=== PATIENT | female | born 1960 | race Caucasian/White ===

== ENCOUNTER 2018-04-14 23:02 | Emergency (ER) | payer OTHER, SELFPAY ==
[2018-04-14 23:02] VITALS: BP 143/77; PULSE 72; RESP 18; TEMP 36.6; O2SAT 95
[2018-04-14 23:03] VITALS: BP 143/77; PULSE 66; RESP 17; TEMP 36.6; O2SAT 95; BMI 35.9
--- NOTE | 2018-04-14 23:22 | RAD_ITS ---
STUDY: X-RAY - RIGHT RADIUS AND ULNA REASON FOR EXAM: Female, 58 years old. Pain after fall. TECHNIQUE: 2 view(s) of the forearm. COMPARISON: None. FINDINGS: There is no demonstrated soft tissue swelling. Normal visualized radius. Normal visualized ulna. RAD/Forearm 2 Views IMPRESSION: Normal x-ray examination of the radius and ulna. Electronically Signed: Niels Membreno MD at 0:46 EST , Service support ,
--- NOTE | 2018-04-14 23:22 | RAD_ITS ---
STUDY: X-RAY - RIGHT HUMERUS REASON FOR EXAM: Female, 58 years old. Pain after fall. TECHNIQUE: 3 view(s) of the humerus. COMPARISON: None. FINDINGS: Transverse minimally displaced fracture proximal humeral metaphysis. No dislocation. Study limited by patient positioning and/or technique. Soft tissues normal. RAD/Humerus min 2 Views IMPRESSION: Mildly displaced fracture proximal humeral metaphysis on study limited as above. Consider correlation with CT. Electronically Signed: Niels Membreno MD at 0:50 EST , Service support ,
--- NOTE | 2018-04-14 23:26 | ED.DCSUM_ITS ---
- ER Visit Summary Date of Service: 04/14/18 Chief Complaint: Right upper extremity injury History of Present Illness: The patient is a 58 F xuqvv-qzji-vjescjns brought by EMS after mechanical fall 1 hour prior to arrival. Slipped in the yard falling on to her right upper extremity unclear on what she landed on. Pain in the wrist elbow and upper arm. No head injuries. Given medication by EMS, no current relief. States had a leg fracture a year ago no surgical intervention. Followed by [facility]. Physical Examination: General: Alert and oriented ?3, mild distress HEENT: Normocephalic, atraumatic. Moist mucosa membranes Neck: supple, nontender. Cardiovascular: Regular rate and rhythm, no murmurs Respiratory: Normal breath sounds, symmetric, no distress Abdomen: Soft, nontender, nondistended Extremities: Right upper extremity: No clavicular tenderness slight tenderness at the AC joint. Tender palpation proximal humerus. No elbow tenderness. Tender palpation distal radius. No clear gross deformities. Skin intact. Neurovascular intact. Neuro: no focal neurological deficits. Test Results: Right humerus and forearm: Proximal humerus fracture, no dislocation. Emergency Department Course and Treatment: Patient IV placed by EMS. Additional fentanyl for pain control. X-ray of the humerus and forearm obtain noting a proximal humerus fracture. Patient placed in a sling and swath. Improving symptoms. Due to time night, dispense 2 oxycodones to use overnight. Prescription for pain control along with stool softeners. Oaars report negative. Follow-up with [facility] for which she has seen. Treatment Plan: [] Disposition: Discharge Impression: 1. Closed right proximal humerus fracture 2. Mechanical fall This note was generated with [employer] dictation software. It may contain incorrect words, spelling, and punctuation that were not noted in review of the chart prior to signing ED Disposition - Plan for ED Patient: Disposition: Home or Assisted Living Chief Complaint: Upper Extremity Injury Diagnosis: Fracture, humerus, proximal Instructions: ED Sling and Swathe, ED Fx Shoulder Prescriptions: Oxycodone HCl/Acetaminophen [Percocet 5/325] 1 tablet PO Q6H PRN PRN 3 Days #12 tablet PRN Reason: Pain Docusate Sodium [Colace] 100 mg PO DAILY #20 capsule Referrals: Paul Mitchell MD [Primary Care Provider] - Sven Nettles MD [STAFF PHYSICIAN] - 2 Days Additional Instructions: proximal humerous fracture. keep sling and swath. Follow up with eliseo jose raul.
[2018-04-14] MEDS: fentaNYL 100 MCG/2 ML Ampul 50 MCG IV (23:40)
[2018-04-15] MEDS: oxyCODONE 5 MG Tablet 10 MG PO (00:46)
[2018-04-15 01:21] VITALS: BP 143/72; PULSE 67; RESP 18; O2SAT 97
--- OUTSIDE RECORDS SUMMARY | 2018-06-08 02:15 | XMS RPT_ITS ---
:1960 Author Organization [facility] Care Team Providers Name Role Phone TANK GALICIA MD Attending Unavailable RASHAWN BLACKWELL, DR. LC Patterson Primary Care Unavailable LC MOROCHO Primary Care Unavailable Jordon Titus Attending Unavailable Marlin Bello Attending Unavailable Marlin Bello Referring Unavailable LC MOROCHO Primary Care Unavailable PROBLEMS PROBLEMS DATE TYPE CONDITION / CODE ATTENDING STATUS SOURCE 04/15/2018 Unknown S42.209A - Jordon Titus Active [facility] Unspecified [facility] fracture of upper Hospital end of Repository unspecified humerus, initial encounter for closed fracture / S42.209A(ICD-10) PROCEDURES PROCEDURES No Procedure Records FoundRESULTS RESULTS EXTREMITY UPPER Observed: 04/20/2018 Status: F Source: [place] WITHOUT CONTRA 8:55 AM [facility] REPOSITORY [facility] Imaging Services [address] [place] [address] Extremity Upper without Contra MR#: [id number] Acct: [id number] Name: ISIS AGUIRRE Rep #: [id number] : 1960 F 58 From: Kraig Harrison DO PCP: Lc Morocho MD Status: REG CLI Study: Extremity Upper without Contra Date of Exam: 04/20/18 Exam# [id number] Ordering Dr: Marlin eBllo STUDY: CT RIGHT SHOULDER REASON FOR EXAM: Female, 58 years old. Humeral fracture. RADIATION DOSAGE (If Supplied By Facility): CTDIvol = ( 29.76 ) mGy, DLP = ( 626.62 ) mGycm TECHNIQUE: The patient was scanned in a multi detector CT scanner. High resolution transaxial imaging was performed without the administration of intravenous contrast material. Sagittal and coronal images were reconstructed. Individualized dose optimization techniques were used for this CT. COMPARISON: None. FINDINGS: There is maintenance of the glenohumeral joint. Normal glenoid rim, neck and visualized scapula. There is a comminuted fracture of the humeral head and neck. The shaft is impacted into the posterior aspect of the humeral head. This is a small joint effusion. Normal coracoid process. Normal visualized lateral clavicle. Normal acromioclavicular articulation. There is a Type II morphology (curved), with a neutral orientation. Normal visualized muscles and soft tissue structures. CT/Extremity Upper without Contra IMPRESSION: Comminuted fractures of the humeral head and neck with impaction of the shaft. There is maintenance of the glenohumeral joint. Electronically Signed: Kraig Harrison DO at 10:01 EST Tel [phone], Service support , CC: Lc Morocho MD; Marlin Bello Carbide Operator: Signed EMERGENCY DEPARTMENT Observed: 04/15/2018 Status: F Source: [place] SUMMARY 12:31 AM [facility] REPOSITORY [facility] Medical Records Department [address] [place] [address] Emergency Department Summary 04/14/18 2324 MR#: [id number] Acct: [id number] Name: TIMOTHYNNAMDI CHRISTENSENIRASEMA Patino Rep #: [id number] : 1960 58 From: Jordon Joiner PCP: Lc Morocho MD Status: REG ER - ER Visit Summary Date of Service: 04/14/18 Chief Complaint: Right upper extremity injury History of Present Illness: The patient is a 58 F imjyz-qtca-mfinzxvi brought by EMS after mechanical fall 1 hour prior to arrival. Slipped in the yard falling on to her right upper extremity unclear on what she landed on. Pain in the wrist elbow and upper arm. No head injuries. Given medication by EMS, no current relief. States had a leg fracture a year ago no surgical intervention. Followed by [facility] [facility]. Physical Examination: General: Alert and oriented 3, mild distress HEENT: Normocephalic, atraumatic. Moist mucosa membranes Neck: supple, nontender. Cardiovascular: Regular rate and rhythm, no murmurs Respiratory: Normal breath sounds, symmetric, no distress Abdomen: Soft, nontender, nondistended Extremities: Right upper extremity: No clavicular tenderness slight tenderness at the AC joint. Tender palpation proximal humerus. No elbow tenderness. Tender palpation distal radius. No clear gross deformities. Skin intact. Neurovascular intact. Neuro: no focal neurological deficits. Test Results: Right humerus and forearm: Proximal humerus fracture, no dislocation. Emergency Department Course and Treatment: Patient IV placed by EMS. Additional fentanyl for pain control. X-ray of the humerus and forearm obtain noting a proximal humerus fracture. Patient placed in a sling and swath. Improving symptoms. Due to time night, dispense 2 oxycodones to use overnight. Prescription for pain control along with stool softeners. Oaars report negative. Follow-up with [facility] for which she has seen. Treatment Plan: [] Disposition: Discharge Impression: 1. Closed right proximal humerus fracture 2. Mechanical fall This note was generated with [employer] dictation software. It may contain incorrect words, spelling, and punctuation that were not noted in review of the chart prior to signing ED Disposition - Plan for ED Patient: Disposition: Home or Assisted Living Chief Complaint: Upper Extremity Injury Diagnosis: Fracture, humerus, proximal Instructions: ED Sling and Swathe, ED Fx Shoulder Prescriptions: Oxycodone HCl/Acetaminophen [Percocet 5/325] 1 tablet PO Q6H PRN PRN 3 Days #12 tablet PRN Reason: Pain Docusate Sodium [Colace] 100 mg PO DAILY #20 capsule Referrals: Lc Morocho MD [Primary Care Provider] - Sven Nettles MD [STAFF PHYSICIAN] - 2 Days Additional Instructions: proximal humerous fracture. keep sling and swath. Follow up with eliseo blunt. What to do if you have Problems For any increased pain, shortness of breath, bleeding, nausea or vomiting, chest pain, or any unexpected problems, contact your Primary Care Provider. Call [facility] ([phone]) or report to the closest Emergency Room. Call 911 if necessary. 04/15/18 0031 <Electronically signed by Jordon Joiner> Date Jordon Joiner Cosigner Signature (If Indicated): Date CC: Lc Morocho MD FOREARM 2 VIEWS Observed: 04/14/2018 Status: F Source: [place] 11:22 PM [facility] REPOSITORY [facility] Imaging Services [address] [place] [address] Forearm 2 Views MR#: [id number] Acct: [id number] Name: ISIS AGUIRRE Rep #: [id number] : 1960 F 58 From: Niels Membreno PCP: Lc Morocho MD Status: REG ER Study: Forearm 2 Views Date of Exam: 04/14/18 Exam# [id number] Ordering Dr: Jordon Titus DO STUDY: X-RAY - RIGHT RADIUS AND ULNA REASON FOR EXAM: Female, 58 years old. Pain after fall. TECHNIQUE: 2 view(s) of the forearm. COMPARISON: None. FINDINGS: There is no demonstrated soft tissue swelling. Normal visualized radius. Normal visualized ulna. RAD/Forearm 2 Views IMPRESSION: Normal x-ray examination of the radius and ulna. Electronically Signed: Niels Membreno MD at 0:46 EST , Service support , CC: Lc Morocho MD; Jordon Titus Carbide Operator: Signed HUMERUS MIN 2 VIEWS Observed: 04/14/2018 Status: F Source: [place] 11:22 PM [facility] REPOSITORY [facility] Imaging Services [address] [place] [address] Humerus min 2 Views MR#: [id number] Acct: [id number] Name: ISIS AGUIRRE Rep #: [id number] : 1960 F 58 From: Niels Membreno PCP: Lc Morocho MD Status: REG ER Study: Humerus min 2 Views Date of Exam: 04/14/18 Exam# [id number] Ordering Dr: Jordon Titus DO STUDY: X-RAY - RIGHT HUMERUS REASON FOR EXAM: Female, 58 years old. Pain after fall. TECHNIQUE: 3 view(s) of the humerus. COMPARISON: None. FINDINGS: Transverse minimally displaced fracture proximal humeral metaphysis. No dislocation. Study limited by patient positioning and/or technique. Soft tissues normal. RAD/Humerus min 2 Views IMPRESSION: Mildly displaced fracture proximal humeral metaphysis on study limited as above. Consider correlation with CT. Electronically Signed: Niels Membreno MD at 0:50 EST , Service support , CC: Lc Morocho MD; Jordon Titus Carbide Operator: Signed CBC Collected: 12/19/2017 Status: F Source: [place] 11:09 AM [facility] [place] REPOSITORY TYPE CODE TESTS RESULT OUT OF REFERENCE UNITS RANGE LAB WBC(LOINC) 4.60-10.80 10 3/mcL WBC 6.90 LAB RBCCT(LOINC 4.20-5.40 10 6/mcL ) RBC 4.35 LAB HGB(LOINC) 12.0-16.0 G/dL Hgb 13.4 LAB HCT(LOINC) 37.0-47.0 % Hct 38.4 LAB MCV(LOINC) 80.0-94.0 fL MCV 88.4 LAB MCH(LOINC) 27.0-31.2 pg MCH 30.7 LAB MCHC(LOINC) 33.0-37.0 G/dL MCHC 34.8 LAB RDW(LOINC) 11.5-14.5 % RDW 13.6 LAB PLT(LOINC) 130-400 10 3/mcL Platelet 225 LAB MPV(LOINC) 7.4-10.4 fL MPV 8.7 Performed By: #### BMP, GFR, TROP #### [place] [address] #### ANEU, ADIFF, CBC #### [address] [address] .AUTO DIFF Collected: 12/19/2017 Status: F Source: [facility] 11:09 AM [facility] [place] REPOSITORY TYPE CODE TESTS RESULT OUT OF REFERENCE UNITS RANGE LAB RALPH(LOINC) 37.0-80.0 % Neutrophil % 61.3 LAB LYM(LOINC) 10.0-50.0 % Lymphocyte % 26.8 LAB MON(LOINC) 1.7-13.0 % Monocyte % 7.8 LAB EO(LOINC) 0.0-7.0 % Eosinophil % 2.9 LAB BAS(LOINC) 0.0-2.5 % Basophil % 1.2 LAB ABLYM(LOIN 0.77-3.85 10 3/mcL C) Lymphocyte, 1.80 Absolute LAB KATELYN(LOINC 0.15-1.00 10 3/mcL ) Monocyte, 0.50 Absolute LAB AEOS(LOINC 0.00-0.40 10 3/mcL ) Eosinophil, 0.20 Absolute LAB ABAS(LOINC 0.00-0.19 10 3/mcL ) Basophil, 0.10 Absolute Performed By: #### BMP, GFR, TROP #### [address] [address] #### ANEU, ADIFF, CBC #### [place] [address] [place], [place] [address] .NEUABS Collected: 12/19/2017 Status: F Source: [facility] 11:09 AM [facility] [place] REPOSITORY TYPE CODE TESTS RESULT OUT OF REFERENCE UNITS RANGE LAB ANEU(LOINC) 2.85-6.16 10 3/mcL Neutrophil, 4.20 Absolute Performed By: #### BMP, GFR, TROP #### [address] [address] #### ANEU, ADIFF, CBC #### [place] [address] [place], [place] [address] BMP Collected: 12/19/2017 Status: F Source: [facility] 11:09 AM [facility] [place] REPOSITORY TYPE CODE TESTS RESULT OUT OF REFERENCE UNITS RANGE LAB GLU(LOINC) 70-105 mg/dL Glucose High Level 111 LAB NA(LOINC) 136-145 mmol/L Sodium Level 139 LAB K(LOINC) 3.5-5.1 mmol/L Potassium Level 4.5 LAB CL(LOINC) 98-107 mmol/L Chloride 101 LAB CO2(LOINC) 22-29 mmol/L CO2 28 LAB EBAL(LOINC mEq/L ) Electrolyte Balance 10.0 LAB BUN(LOINC) 7-18 mg/dL BUN High 19 LAB CRE(LOINC) 0.55-1.02 mg/dL Creatinine Lvl (s) 0.78 LAB BC(LOINC) 7-27 ratio BUN/Creatinine 24 Ratio LAB CA(LOINC) 8.4-10.2 mg/dL Calcium Lvl 9.8 Performed By: #### BMP, GFR, TROP #### [address] [address] #### ANEU, ADIFF, CBC #### [place] [address] [place], [place] [address] .GFR Collected: 12/19/2017 Status: F Source: [facility] 11:09 [facility] REPOSITORY TYPE CODE TESTS RESULT OUT OF REFERENCE UNITS RANGE LAB GFRAA(LOINC ml/min/1.73 ) sqm GFR 92 Hungarian Result Comment: GFR Population mean for , Non- Americans Ages 20-29 = 116 mL/min/1.73 sq.m. Ages 30-39 = 107 mL/min/1.73 sq.m. Ages 40-49 = 99 mL/min/1.73 sq.m. Ages 50-59 = 93 mL/min/1.73 sq.m. Ages 60-69 = 85 mL/min/1.73 sq.m. Ages 70+ = 75 mL/min/1.73 sq.m. Chronic Kidney Disease: Less than 60 mL/min/1.73 square meters End Stage Renal Disease: Less than 15 mL/min/1.73 square meters LAB GFRNO(LOINC) ml/min/1.73sqm GFR Non- 76 Result Comment: GFR Population mean for , Non- Americans Ages 20-29 = 116 mL/min/1.73 sq.m. Ages 30-39 = 107 mL/min/1.73 sq.m. Ages 40-49 = 99 mL/min/1.73 sq.m. Ages 50-59 = 93 mL/min/1.73 sq.m. Ages 60-69 = 85 mL/min/1.73 sq.m. Ages 70+ = 75 mL/min/1.73 sq.m. Chronic Kidney Disease: Less than 60 mL/min/1.73 square meters End Stage Renal Disease: Less than 15 mL/min/1.73 square meters Performed By: #### BMP, GFR, TROP #### [place] [address] #### ANEU, ADIFF, CBC #### [address] [address] TROP Collected: 12/19/2017 Status: F Source: [facility] 11:09 [facility] REPOSIT[facility] TYPE CODE TESTS RESULT OUT OF REFERENCE UNITS RANGE LAB TROP(LOINC) 0.000-0.040 ng/mL Troponin <0.020 Result Comment: Troponin I reference range: 0.00-0.040 ng/mL Negative and non-diagnostic. >0.040 ng/mL Consistent with cardiac damage, increased clinical risk and possibility of myocardial infarction. Serial measurements, a rise & fall in test results, clinical history, appropriate symptoms and/or ECG changes may help assess possibility of [place]. *Other non-acute coronary syndrome conditions such as CHF, myocarditis, pulmonary emboli, sepsis and cardiac surgery could result in myocardial damage and increased troponin levels. Performed By: #### BMP, GFR, TROP #### [address] [address] #### ANEU, ADIFF, CBC #### [address] [address] ALLERGIES ALLERGIES DATE TYPE / CODE NAME / CODE REACTION SEVERITY SOURCE 04/14/2018 Drug Penicillins/ Other SV [facility] Allergy/4160 [id number](R [facility](SNOMED XNORM) Repository CT) 04/14/2018 Drug soap/[id number] Rash Unknown [facility] Allergy/4160 012(RXNORM) [facility](SNOMED Repository CT) 04/14/2018 Drug povidone-iod Rash Unknown [facility] Allergy/4160 ine/[id number] [facility](SNOMED 53(RXNORM) Repository CT) 04/14/2018 Drug soy/[id number] Food Allergy Unknown [facility] Allergy/4160 05(RXNORM) [facility](SNOMED Repository CT) 04/14/2018 Drug coconut/F006 Food Allergy Unknown [facility] Allergy/4160 813897(RXNOR [facility](SNOMED M) Repository CT) ENCOUNTERS ENCOUNTERS ADMIT/DISCHARGE ACCOUNT NUMBER ADMITTING ENCOUNTER LOCATION SOURCE CLASS 04/20/2018 [id number] Ambulatory [facility] ding:CT Repository 04/14/2018/04/15/20 [id number] Emergency [address] ding:ED Repository 12/19/2017/12/20/19 [id number] Emergency BBuilding:ER [address] Repository PAYERS PAYERS ENCOUNTER GUARANTOR PAYER SUBSCRIBER SOURCE 04/20/2018 ISIS [id number] Insurance:Chanelle Castaneda: [facility] Number: [id number] [id number] Repository [address]Gko: [phone]) Date:[id number] [phone] () [address], [place] [address]RJ: 04/20/2018 Secondary Insurance:SELF NOT GIVENUNK [place] PAY INSURANCEPolicy Community Number: Effective Hospital Date:2018-04-16 Repository 04/14/2018 Isis Patino Primary Saurabh T Eliseo [id number] Insurance:AULTCAREPolicy TroyerDOB: Community [place] Number: [id number] [facility] [address] [id number] Repository [address]Ehs: ([phone]) Date:[id number] [phone] (HP) [address], [place] [address]MZ: 04/14/2018 Secondary Insurance:SELF NOT GIVENUNK [place] PAY INSURANCEPolicy Community Number: Effective Hospital Date:2018-04-14 Repository 12/19/2017 ISIS Patino Primary Insurance: ISIS [facility] TROYERDOB: Workers TROYERDOB: Foundation [id number] CompensationPolicy [id number] Repository [facility] Number: [address] [place], [place] [id number] [place] [email or web address] Date:2017-12-19 23[address]Ius: ([phone]) CHINEDUel: [id number] Name:[employer] SUPERVISOR [phone] [address], [place] (HP)Tel: 330 (HP)Tel: [phone]: [phone] (WP) [phone] (WP) 12/19/2017 [facility] Insurance:AULTCARE TROYERDOB: [place] [id number] Number: [id number] Repository [id number] [address] [facility] Date:2017-12-19 - [facility] [place] [id number] Name:AUTOMATION AND CONTROLS SUPERVISOR [phone]: [address], [place] [address]WP: (HP) (WP)
== END 2018-04-15 01:22 | disposition home or self-care (01) ==
PROVIDERS: Emergency Provider Emergency Medicine; Family Provider Family Medicine; PCP Family Medicine
DX: S42.201A Unspecified fracture of upper end of right humerus, initial encounter for closed fracture (principal); W01.0XXA Fall on same level from slipping, tripping and stumbling without subsequent striking against object, initial encounter; Y93.9 Activity, unspecified; Y92.9 Unspecified place or not applicable
CPT/HCPCS: 73060; 73090; 96374; 99285; A4216

== ENCOUNTER → 2018-04-20 08:52 | Outpatient (CLI) | payer OTHER, SELFPAY ==
[2018-04-14 23:03] VITALS: BMI 35.9
--- NOTE | 2018-04-20 08:55 | CT_ITS ---
STUDY: CT RIGHT SHOULDER REASON FOR EXAM: Female, 58 years old. Humeral fracture. RADIATION DOSAGE (If Supplied By Facility): CTDIvol = ( 29.76 ) mGy, DLP = ( 626.62 ) mGycm TECHNIQUE: The patient was scanned in a multi detector CT scanner. High resolution transaxial imaging was performed without the administration of intravenous contrast material. Sagittal and coronal images were reconstructed. Individualized dose optimization techniques were used for this CT. COMPARISON: None. FINDINGS: There is maintenance of the glenohumeral joint. Normal glenoid rim, neck and visualized scapula. There is a comminuted fracture of the humeral head and neck. The shaft is impacted into the posterior aspect of the humeral head. This is a small joint effusion. Normal coracoid process. Normal visualized lateral clavicle. Normal acromioclavicular articulation. There is a Type II morphology (curved), with a neutral orientation. Normal visualized muscles and soft tissue structures. CT/Extremity Upper without Contra IMPRESSION: Comminuted fractures of the humeral head and neck with impaction of the shaft. There is maintenance of the glenohumeral joint. Electronically Signed: Kraig Harrison DO at 10:01 EST Tel [phone], Service support ,
== END ==
PROVIDERS: Family Provider Family Medicine; PCP Family Medicine; Referring Provider Physician Assistant; Visit Provider Physician Assistant
DX: S42.231A 3-part fracture of surgical neck of right humerus, initial encounter for closed fracture (principal)
CPT/HCPCS: 73200

== ENCOUNTER → 2019-11-04 12:09 | Outpatient (CLI) | payer OTHER, SELFPAY ==
--- NOTE | 2019-11-04 12:20 | CT_ITS ---
HISTORY: RT HIP [facility]STE[facility]ARTHRITIS, [facility]CHNIQUE: Noncontrast bone protocol CT of the right hip was performed without contrast. 2D reformats were performed by the technologist. Number of images including paperwork: [phone]. A radiation dose optimization technique was used for this scan. COMPARISON: None FINDINGS: BONES: No acute fracture. JOINTS: No subluxation. Severe degenerative changes of the right hip. Moderate degenerative changes of the left hip. Moderate degenerative changes of the medial and lateral compartments of the right knee. Severe degenerative changes of the medial compartment of the left knee with moderate degenerative changes of the lateral compartment. Small left knee joint effusion. SOFT TISSUES: Unremarkable. FOREIGN BODY: No radiopaque foreign body. PELVIC ORGANS: Colonic diverticulosis. Hysterectomy. CT/Extremity Lower without Contra IMPRESSION: 1. No acute findings. 2. Degenerative changes of the hips and knees, as described. Individualized dose optimization techniques were used for this CT. at 0541 Reported and signed by: Jasmin Sumner MD Electronically Signed: Jasmin Sumner MD at 5:40 EDT Tel , Service support ,
== END ==
PROVIDERS: PCP Family Medicine; Referring Provider Specialist; Visit Provider Specialist
DX: M16.11 Unilateral primary osteoarthritis, right hip (principal)
CPT/HCPCS: 73700

== ENCOUNTER 2019-11-19 12:08 | Observation (INO) | payer OTHER, SELFPAY ==
--- NOTE | 2019-11-04 12:33 | EKG12_ITS ---
Test Reason : PRE-OP Blood Pressure : / mmHG Vent. Rate : 058 BPM Atrial Rate : 058 BPM P-R Int : 168 ms QRS Dur : 080 ms QT Int : 420 ms P-R-T Axes : 065 044 019 degrees QTc Int : 412 ms Sinus bradycardia Otherwise normal ECG Confirmed by JOSE F HANKS, JASON ([id number]), purchasing expeditor KIM YBARRA ([id number]) on 11/05/2019 8:39:40 AM Referred By: Sagar Weems Confirmed By:JASON KOHLER MD
[2019-11-04 12:50] LABS: Absolute Lymphocyte Count 2.33 X10^3/uL (0.83-4.51); Absolute Neutrophil Count 3.2 X10^3/uL (2.0-7.7); Basophil# 0.06 X10^3/uL; Basophil% 0.9 % (0-1); Eosinophil# 0.38 X10^3/uL; Eosinophils% 5.7 % (0-5); Hematocrit 39.8 % (37-47); Hemoglobin 12.9 g/dL (12.0-15.0); Lymphocyte # 2.33 X10^3/ul (4.0); Lymphocyte % 34.9 % (19-41); Mean Corp Hgb Conc 32.4 g/dL (32-36); Mean Corpuscular Hgb 30.4 pg (27.0-32.0); Mean Corpuscular Volume 93.6 fL (81-99); Mean Platelet Vol. 11.1 fl (6.2-12.0); Monocyte# 0.64 X10^3/uL; Monocyte% 9.6 % (0-10); NRBC Flagged by Analyzer 0 % (0-5); Neutrophil # 3.24 X10^3/uL (2.7-7.7); Neutrophil % 48.6 % (47-70); Platelet Count 236 K/mm3 (150-450); RBC Distribution Width CV 12.7 % (11.6-14.6); RBC Distribution Width SD 43.8 fl (35.1-43.9); Red Blood Count 4.25 M/mm3 (4.2-5.4); White Blood Count 6.7 K/mm3 (4.4-11.0)
[2019-11-04 13:15] LABS: Anion Gap 7 (5-15); BUN 25 mg/dL (7-18); BUN/Creat Ratio 32.6 RATIO (10-20); Calcium,Total 9.8 mg/dL (8.5-10.1); Chloride 108 mmol/L (98-107); Creatinine, Serum 0.77 mg/dL (0.55-1.02); EST Glomerular Filtration Rate 82 mL/min (>60); Est Glom Filt Rate - Afr Amer 99 mL/min (>60); Glucose 89 mg/dL (74-106); Potassium 4.1 mmol/L (3.5-5.1); Sodium Level 141 mmol/L (136-145)
--- NOTE | 2019-11-09 13:25 | PCM.HP.BLA ---
History and Physical History and Physical Patient Name: Isis Jacobson : 1960 From: SHALINI BARRAZA NP DATE OF SURGERY: 11/19/2019 SCHEDULED PROCEDURE: Minimally invasive direct anterior robotic-assisted right total hip arthroplasty HISTORY OF PRESENT ILLNESS: Preoperative history and physical exam was performed on November 04, 2019. This is a 59-year-old female whose been having ongoing right hip pain for over a year. The pain is 5-6 on a scale of 10 on average and 10 on a scale of 10 with activity. She describes the pain as constant, aching, sore and sharp. The pain is made worse with stairs, walking and prolonged sitting. She does report to start up pain. The pain is located in the right groin and anterior thigh. The pain does wake her at night. The patient does report inability to put on her socks and shoes. Previous treatments include rest, ice, heat, extra strength Tylenol, nonsteroidal anti-inflammatories and glucosamine. The patient denies fevers, chills, shortness of breath, difficulty breathing or recent infections. She has a medical history pertinent for arthritis. Surgical clearance will be obtained from Dr. Paul Mitchell. She does report an anaphylactic reaction to penicillin. After failing conservative measures and discussing treatment options with Dr. Sagar Weems the patient does wish to proceed with a minimally invasive robotic-assisted direct anterior right total hip arthroplasty. REVIEW OF SYSTEMS: ROS: Const: Reports weight lossDenies change in appetite, fever,or weight change. CV: Reports heart murmur, but denies chest pain and irregular heartbeat. Resp: Denies cough, pneumonia, SOB, tuberculosis and wheezing. GI: Denies constipation, diarrhea, difficulty swallowing, heartburn, nausea, bloody stools and vomiting. : Urinary: denies incontinence. Musculo: Reports leg swelling, limp, trouble walking and weakness. Skin: Denies Raynaud's, history of shingles and tattoo. Neuro: Reports numbness/tingling but denies ambulatory dysfunction, dizziness and tremor. Psych: Reports anxiety, but denies insomnia and stress. Alessio/Lymph: Denies anemia, bleeding/bruising tendency and past transfusion. Reviewed and updated. PAST MEDICAL HISTORY: Advance Care Plan: No Advance Directives Effective Date: 12/22/2016 PMH: Medical Problems: Arthritis Accidents: Fracture - LT FIB FX 08/20/16 RT Shoulder FX - (2019) Surgical Hx: Hysterectomy - (03/2017) Anesthesia Complications: None Assistive Devices: Glasses Reviewed, no changes. SOCIAL HISTORY: SH: Marital: .Occupation: Currently Working.Work Status: Currently Working.Hand Dominance: Right-handed. Personal Habits: Cigarette Use: Never Smoked Cigarettes.Alcohol: Denies use.Drug Use: Denies Use.Enjoy Exercising: Exercises 1-3 x/month. Reviewed, no changes. VITALS: Ht: 66 Wt: 210lb Wt k.256 BMI: 33.9 BP: 124/68 Pulse: 61 Resp: 12 T: 97.5 T: 36.4C ALLERGIES: Penicillin - anaphylaxis Betadine Soy Proteins Coconut MEDICATIONS: Mupirocin 2 % use qtip and apply inside each nostril twice a day until the day of surgery, Tylenol Extra Strength 500 mg 2 by mouth every 8 hours, Naproxen as directed PRE-OP EXAM: General appearance:NORMAL Other: Eyes: Conjunctivae and lids: NORMAL Pupils: ERR Ears, Nose, Mouth, and Throat: NORMAL Other: Inspection of lips, teeth and gums: NORMAL Other: Respiratory: Assessment of respiratory effort: NORMAL Other: Auscultation of lungs: clear to auscultation no wheezes, rhonchi or rales. Cardiovascular: Auscultation of heart: regular rate and rhythm, no murmurs, gallops or rubs. Gastrointestinal: Exam of abdomen: soft, nontender, nondistended bowel sounds present. Neurological: see below Psychiatric: Orientation to time, place and person: NORMAL Other: Mood and affect: NORMAL Other: PHYSICAL EXAMINATION: The patient ambulates with an antalgic gait. Right hip is cool to touch without erythema. Range of motion: Flexion to 80. Internal rotation neutral. External rotation to 30. Pain with flexion, abduction and internal rotation. The right leg is a proximally 4 mm shorter than the contralateral leg. Sensation intact to saphenous, sural, deep and superficial peroneal and tibial nerve distributions. Neurovascularly intact. IMAGING STUDIES: 3 views of right hip including ovarian AP pelvis and AP hip and crossfire lateral obtained on June 04, 2019 reviewed reveals severe degenerative osteoarthritis of the right hip with complete loss of joint space with bony erosion. There is subchondral cyst formation, osteophyte formation and subchondral sclerosis. A large osteophyte is visualized off the femoral head. The right hip appears shorter compared to the left hip in regard to the lesser trochanter. There are no acute fractures or dislocations. IMPRESSION: 1. Unilateral osteoarthritis, right hip 2. Obesity, BMI 33.9 PLAN: Dr. Sagar Weems did discuss and review with the patient all treatment options including surgical versus nonsurgical. The patient does wish to proceed with the above-stated procedure. Potential risk, benefits and complications of the procedure were discussed in detail including but not limited to , infection, nerve and blood vessel damage, persistent pain, numbness, tingling, paresthesia, blood clot, pulmonary embolism and requirement for possible further surgery. The patient expressed full understanding and has no further questions for the doctor. The patient does agree to proceed with the above-stated procedure and has signed the surgery consent form. The patient was instructed to bring a walker to the hospital the day of surgery. Discussed with the patient the risks associated with the COVID-19 virus including the risk of exposure while at the hospital. The patient was reassured local hospitals have low infection rates and taken all necessary precautions to limit patient exposure to COVID-19. Limiting the patient's time in the hospital may decrease their exposure to COVID-19. The patient was notified that we will need to comply with any screening or testing the hospital wishes to perform and that surgery may be delayed for any positive test results. This dictation was created using voice recognition software. Phonetic and/or grammatical errors may exist. ___ I have re-examined the patient. There are no clinical changes since date of exam. ___ See progress notes for changes. ___ Dictated on admission Date: Time: Signature:
[2019-11-19] VITALS (12 sets, daily range): BP systolic 92–142; BP diastolic 57–82; PULSE 68–97; RESP 16–18; TEMP 36.3–36.7; O2SAT 93–100; BMI 33.9
[2019-11-19] MEDS: Lactated Ringers 1,000 ML 75 ML IV (11:49)
[2019-11-19] MEDS: Gabapentin 600 MG Tablet PO (11:50)
[2019-11-19] MEDS: Acetaminophen 500 MG Tablet 1000 MG PO ×3 (11:50→21:01)
[2019-11-19] MEDS: Celecoxib 200 MG Capsule 400 MG PO (11:50)
[2019-11-19] MEDS: dexAMETHasone 10 MG/ML Vial IV (13:00)
--- NOTE | 2019-11-19 14:00 | RAD_ITS ---
STUDY: X-RAY - PELVIS AND RIGHT HIP REASON FOR EXAM: Female, 59 years old. RIGHT TOTAL HIP WITH CARLOS MACHINE ROBOT. TECHNIQUE: 2 C-arm views of the pelvis and hip, 10.4 seconds fluoroscopy time. COMPARISON: None. FINDINGS: These limited C-arm images show grossly satisfactory appearance of right hip arthroscopy. Correlate with procedure note. Electronically Signed: Marco Antonio Velázquez MD at 17:34 EDT , Service support , RAD/Hip 1 view with Pelvis
--- NOTE | 2019-11-19 14:40 | OP.PCM_ITS ---
Report of Operation Date of Procedure: 11/19/19 Pre-Operative Diagnosis: Right hip primary osteoarthritis Post-Operative Diagnosis: Right hip primary osteoarthritis Surgery/Procedure Performed:: Right minimally invasive robot-assisted direct anterior total replacement Description of Surgical Findings:: Stable hip with equal leg lengths furniture removalist: Vini House Type of Anesthesia:: Spinal General Anesthesia Anesthesiologist: Benjamin Nova Special Medications: Clindamycin and vancomycin IV, 1 g TXA at incision, 1 g TXA closure, 10 mg Decadron, joint cocktail (5 mg Duramorph, 30 mL of 0.5% Ropivicaine, 1000 units of epinephrine, 30 mg of Toradol) Specimen's removed: Bony cuts Estimated Blood Loss (mL): 300 Fluids Replaced: 600 mL crystalloid Description of Procedure: Components used: 1. Accolade 2 [place] femoral stem size 4 132? 2. [place] trident 2 acetabular shell size 52 mm 3. [place] X3 polyethylene E 4. [place] Biolox delta 36mm,- 2.5mm femoral head Brief history operative indications: 59 yo F who failed conservative measures for their hip osteoarthritis. X-rays were consistent with osteoarthritis including joint space narrowing, osteophyte formation and subchondral cysts. Total hip replacement was discussed with the patient with risks and benefits including but not limited to blood loss, DVTs, PEs, neurovascular damage, dislocation, general risks of anesthesia including loss of life. Patient demonstrated an understanding medical clearance is obtained the patient was consented for surgery. Procedure: On the date of procedure the patient's R hip was marked in the preoperative area. Patient was then taken back to the operating room where anesthesia assumed control of the C-spine and airway and administered anesthetic. Patient was transferred to the operating table and placed in the supine position. The hips were placed at the break of the bed and a sacral bump was placed. The R lower extremity was then prepped out in a sterile fashion using chlorhexidine while the surgeon scrubbed. The PA was vital in the positioning of the patient. Upon reentering the room the R lower extremity was draped in the standard orthopedic fashion and the incision was marked. A timeout was called and everyone agreed upon the side, the site, the procedure be performed, antibody given, and patient's identity. At this time 3 pins were placed in the contralateral iliac wing. At this time incision was made through skin, subcutaneous tissue, and fat down to fascia. The fascia was then incised and the TFL was retracted laterally. A retractor was placed on the lateral border of the femoral neck. Attention was directed to the inferior portion of the approach and all crossing vessels were identified and appropriately coagulated. A retractor was then placed on the medial portion of the femoral neck. The anterior capsule was then cleared of all soft tissue and then H shaped capsulotomy was made. The retractors were then placed inside the capsule. Femoral checkpoint was placed and femoral checkpoints were registered. The femoral neck was identified and a cleanup cut was made. At this time a power corkscrew was used to remove the femoral head. Attention was then turned toward the acetabulum where the soft tissues were appropriately retracted and the acetabulum was registered. Following successful registering the acetabulum was sequentially reamed to 52 mm . A 52 mm cup was then selected and impacted into place. Acetabular liner was impacted into place and locking mechanism was verified. The position of the acetabular cup was then verified under live fluoroscopy. Attention was then turned to the femur. Soft tissue releases on the medial and lateral femoral neck were appropriately done, the leg was externally rotated and lateralized. A Rivera retractor was placed medially and proximally to the greater trochanter this allowed appropriate visualization and exposure of the femoral canal. Rongeour was then used to remove excess lateral bone. A canal finder and entry broach were used to open the proximal canal. Once we verified we were down the femoral canal we subsequently broached up to a size 4 femur. The appropriate neck was placed in the previously selected head was trialed with a -2.5 mm neck. Traction was pulled and the hip was reduced with internal rotation. Once it was appropriately reduced and stability was checked. There was minimal shuck, equal leg lengths and appropriate stability with hyperextension and external rotation as well as with 90? flexion and internal rotation. Darion also confirmed appropriate leg lengths and offset. Fluoroscopy was then also used to verify the position of the components and leg lengths using the contralateral side for comparison. The trial components were then dislocated the proximal femur was again exposed and the components were removed from the wound. The final components were verified and opened. The wound was copiously irrigated out with normal saline. The acetabulum was checked for any residual debris. The final components were placed and impacted. Traction and internal rotation were again used to reduce the hip. After adequate reduction the hip remained stable with appropriate leg lengths. The final components were once again checked with live fluoroscopy and were found to be satisfactory. The wound was then copiously irrigated with normal saline once more, and hemostasis was obtained. Closure was then done using #1 Vicryl runner to close the fascia. A 2-0 vicryl interuppted sutures were used to close the subcutaneous skin. A 3-0 Monocryl and Steri-Strips were used for final skin closure. A Silverlon dressing was placed. Patient was awakened by anesthesia and transferred to the [facility]. Patient was then transferred to the PACU for recovery. Postoperative plan: Patient will get 24 hours postop antibiotics. Patient will get in-house physical therapy and will be weight-bear as tolerated. Patient will follow up in office in 2 weeks for a wound check and x-rays. During the course of the procedure the physician stakes player (PE) played a vital role. Their intimate knowledge of my steps in the procedure aided in safe and expedient completion of the procedure. The PE played a vital rolls in positioning particularly in obtaining the appropriate positioning of the sacral bump. The PE was also vital in the retraction of soft tissues during the exposure and especially the femoral work as this is a vital part of the procedure to prevent complications and fractures. The PE was also vital and protecting soft tissues during times of bony cuts and reaming. He also played a vital role in closure with my direct supervision. The PE was also important during reduction and dislocation of the joint and trials intraoperatively. - Complications No intraoperative complications - Admit VTE Documentation VTE Present on Admission: No VTE Mechan Device Prophylaxis: SCD's, Thigh High SANG Hose VTE Pharm Prophylaxis ordered?: Yes
--- NOTE | 2019-11-19 15:31 | RAD_ITS ---
STUDY: X-RAY - PELVIS AND RIGHT HIP REASON FOR EXAM: Female, 59 years old. Post-op right hip TECHNIQUE: 2 views of the pelvis and hip. COMPARISON: CT scan 11/04/2019. FINDINGS: Satisfactory appearance of a right hip arthroplasty. No evidence for acute complication. Mild to moderate changes are seen of the left hip. No other abnormalities or findings. RAD/Hip Min 2 Views (Portable) IMPRESSION: Satisfactory appearance of a right hip arthroplasty. No evidence for acute complication. Electronically Signed: Marco Antonio Velázquez MD at 17:39 EDT , Service support ,
[2019-11-19 15:55] LABS: Bedside Glucose 90 mg/dL (70-110)
[2019-11-19] MEDS: Lactated Ringers 1,000 ML 125 ML IV (16:21)
[2019-11-19] MEDS: Aspirin 81 MG TAB.CHEW PO (17:39)
[2019-11-19] MEDS: Ensure Surgery 237 ML LIQUID PO (17:39)
[2019-11-19] MEDS: Ketorolac 15 MG/ML Vial IV (20:46)
[2019-11-19] MEDS: oxyCODONE 5 MG Tablet PO (20:46)
[2019-11-19] MEDS: Senna/Docusate Sodium 1 Tablet 2 TABLET PO (21:00)
[2019-11-20] MEDS: Ondansetron 4 MG/2 ML Vial IV ×2 (00:08→08:18)
[2019-11-20] MEDS: 0.9% NaCl Peripheral Flush Adult/Peds IV ×4 (00:09→13:09)
[2019-11-20 01:37] VITALS: BP 107/65; PULSE 88; RESP 17; TEMP 36.8; O2SAT 95
[2019-11-20 05:00] VITALS: BP 112/66; PULSE 86; RESP 17; TEMP 36.6; O2SAT 95
[2019-11-20] MEDS: Acetaminophen 500 MG Tablet 1000 MG PO ×2 (06:25→13:08)
[2019-11-20 06:58] LABS: Hematocrit 30.4 % (37-47); Hemoglobin 9.7 g/dL (12.0-15.0); Mean Corp Hgb Conc 31.9 g/dL (32-36); Mean Corpuscular Volume 94.1 fL (81-99); Mean Platelet Vol. 11.4 fl (6.2-12.0); Platelet Count 206 K/mm3 (150-450); RBC Distribution Width CV 12.8 % (11.6-14.6); RBC Distribution Width SD 44.2 fl (35.1-43.9); Red Blood Count 3.23 M/mm3 (4.2-5.4); White Blood Count 12.8 K/mm3 (4.4-11.0)
[2019-11-20 07:21] LABS: Anion Gap 6 (5-15); BUN 16 mg/dL (7-18); BUN/Creat Ratio 23.4 RATIO (10-20); Calcium,Total 8.4 mg/dL (8.5-10.1); Chloride 107 mmol/L (98-107); Creatinine, Serum 0.68 mg/dL (0.55-1.02); EST Glomerular Filtration Rate 93 mL/min (>60); Est Glom Filt Rate - Afr Amer 112 mL/min (>60); Estimated Creatinine Clearance 82.36 ml/min; Glucose 144 mg/dL (74-106); Potassium 4.1 mmol/L (3.5-5.1); Sodium Level 140 mmol/L (136-145)
[2019-11-20 08:15] VITALS: BP 103/40; PULSE 73; RESP 16; TEMP 36.4; O2SAT 98
[2019-11-20] MEDS: Famotidine 20 MG Tablet PO (08:30)
[2019-11-20] MEDS: oxyCODONE 5 MG Tablet PO (08:30)
[2019-11-20] MEDS: Ketorolac 15 MG/ML Vial IV (08:33)
--- NOTE | 2019-11-20 08:51 | PN.ORTHO_ITS ---
Subjective: The patient was sitting in bedside chair upon examination. Patient denies any chest pain, shortness of breath, dizziness, lightheadedness, or vomiting, or calf pain. Pain is controlled on medications. No adverse overnight events. Patient has had some nausea postoperatively and is been requiring IV Zofran. Otherwise the pain in the hip is doing well. She has yet to have physical therapy. Objective: Vital signs stable and afebrile. Patient is able to plantarflex and dorsiflex actively. Sensation is intact to light touch to saphenous, sural, superficial and deep peroneal, and tibial distribution. Dressing is clean dry and intact. Negative Homans bilaterally, negative signs and symptoms of DVT. - Physical Exam Vitals/I&O's: Vital Signs Temp Pulse Resp BP Pulse Ox 98 F 86 17 112/66 95 11/20/19 05:00 11/20/19 05:00 11/20/19 05:00 11/20/19 05:00 11/20/19 05:00 Oxygen Flow Rate (L/min) 6 Oxygen Delivery Method Room Air Weight: 95.254 kg Body Mass Index (BMI) 33.9 Intake and Output for Last 24 Hours 11/18/19 11/19/19 11/20/19 23:59 23:59 23:59 Intake Total 2720.42 / 2720.42 1623.58 / 1623.58 Output Total 1100 / 1100 Balance 2720.42 / 2720.42 523.58 / 523.58 General: Alert, Oriented x3, Cooperative, No apparent distress Laboratory Results 11/19/19 11:39: POC Glucose 90 11/20/19 06:15: WBC 12.8 H, RBC 3.23 L, Hgb 9.7 L, Hct 30.4 L, MCV 94.1, MCH 30.0, MCHC 31.9 L, RDW Std Deviation 44.2 H, RDW Coeff of Godwin 12.8, Plt Count 206, MPV 11.4 11/20/19 06:15: Sodium 140, Potassium 4.1, Chloride 107, Carbon Dioxide 27.0, Anion Gap 6, BUN 16, Creatinine 0.68, Estim Creat Clear Calc 82.36, Est GFR (MDRD) Af Amer 112, Est GFR (MDRD) Non-Af 93, BUN/Creatinine Ratio 23.4 H, Glucose 144 H, Calcium 8.4 L Current Medications Acetaminophen (Tylenol) 1,000 mg PO Q8 [facility] Last Admin: 11/20/19 06:25 Dose: 1,000 mg Documented by: Ascorbic Acid (Vitamin C) 1,000 mg PO DAILY [facility] Aspirin (Aspirin, Baby) 81 mg PO BIDCM [facility] Last Admin: 11/19/19 17:39 Dose: 81 mg Documented by: Cholecalciferol (Vitamin D (25mcg)) 1,000 unit PO DAILY [facility] Enteral Nutritional Formula (Ensure Surgery) 237 ml PO TIDCM [facility] Last Admin: 11/19/19 17:39 Dose: 237 ml Documented by: Famotidine (Pepcid) 20 mg PO DAILY [facility] Last Admin: 11/20/19 08:30 Dose: 20 mg Documented by: Sodium Chloride () 250 mls @ 15 mls/hr IV .[id number] PRN PRN Reason: Saline Flush Insulin Human Lispro (Humalog Kwikpen ([facility])) 1 - 6 unit SC Q4H PRN PRN; Protocol PRN Reason: BG>/= 180, SEE PROTOCOL Ketorolac Tromethamine (Toradol ([facility])) 15 mg IV Q6H PRN PRN PRN Reason: Pain Score 1-5/10 Last Admin: 11/20/19 08:33 Dose: 15 mg Documented by: Meloxicam (Mobic) 7.5 mg PO BID [facility] Morphine Sulfate () 2 - 4 mg IV Q2H PRN PRN PRN Reason: Pain Score 4-10/10 Morphine Sulfate () 2 - 4 mg IV Q2H PRN PRN PRN Reason: Pain Score 4-10/10 Ondansetron HCl (Zofran) 4 mg IV Q8H PRN PRN PRN Reason: NAUSEA Last Admin: 11/20/19 08:18 Dose: 4 mg Documented by: Oxycodone HCl (Oxyir) 5 - 10 mg PO Q4H PRN PRN PRN Reason: Pain Score 4-10/10 Last Admin: 11/20/19 08:30 Dose: 5 mg Documented by: Promethazine HCl (Phenergan) 12.5 mg IM Q6H PRN PRN; Protocol PRN Reason: NAUSEA/VOMITING Senna/Docusate Sodium (Senokot-S, Mary Jane-Colace) 2 tablet PO BID [facility] Last Admin: 11/19/19 21:00 Dose: 1 tablet Documented by: Sodium Chloride () 5 - 15 ml IV UD PRN PRN Reason: SALINE FLUSH Last Admin: 11/20/19 08:19 Dose: 10 ml Documented by: Medical Necessity - Tobacco Use Smoking Status: Never smoker Tobacco Use: Non-smoker Assessment/Plan 1. S/P right direct anterior robotic total hip arthroplasty POD #1 2. Continue Pain Medications: Tylenol, meloxicam, OxyIR 3. DVT Prophylaxis: Aspirin 81 mg twice daily 4. PT/OT: Weightbearing as tolerated 5. H & H: 9.7/30.4, asymptomatic. Secondary to acute blood loss from surgery 6. Reactive leukocytosis: Currently 12.8, afebrile. Patient did receive Decadron intraoperatively 7. Encouraged Incentive Spirometry 8. Disposition: Plan will be for possible discharge home today as long as patient is doing well medically and tolerates physical therapy. Patient has outpatient physical therapy established. She will follow-up per postop instructions. Prescriptions will be E scribed to [facility] in [place]. I have reviewed the [place] Automated Rx Reporting System (OARRS) report for this patient for refill pattern and other prescriber involvement as part of the appropriate surveillance for the provision of acute and chronic controlled medications. The report was requested and reviewed on the date of this entry and was considered in the prescribing process.
--- NOTE | 2019-11-20 08:58 | DCINST_ITS ---
Discharge Diet: No Restrictions Discharge Activity: May Not Drive - while taking narcotic pain medications. May shower in (days): 1 - Dressing must be intact to skin. Turn dressing away from water Ice area for (Minutes): 20 - Every 1-2 hours while awake Weight Bearing Status: Weight bearing as tolerated Elevate: Operative Extremity Additional Activity Instructions:: Wear elastic stockings for 2 weeks. DO NOT use alcohol with narcotic pain medication. DO NOT make important decisions while taking narcotic medication. If you have problems with taking your medication (rash, itching, nausea, etc.) call the office at once. Call your doctor if your incision/area has: Increased Pain/ Swelling, Increased Redness, Foul Smelling Discharge Call your doctor if you observe: Fever of 101 or Higher Remove Dressing in (days):: 4 - Okay to remove dressing on November 24, 2019 Additional Instructions: Follow orthopedic postop instructions Once dressing has been removed from the postoperative right hip, must keep incision clean with ABD or 4 x 4 gauze under the skin fold of the top portion of the incision. Allergies/Adverse Reactions: Allergies Penicillins Allergy (Severe, Verified 11/19/19 11:13) Other coconut Allergy (Verified 11/19/19 11:13) Food Allergy povidone-iodine [From Betadine] Allergy (Verified 11/19/19 11:13) Rash soap [From Betadine] Allergy (Verified 11/19/19 11:13) Rash soy Allergy (Verified 11/19/19 11:13) Food Allergy scopolamine Adverse Reaction (Verified 11/19/19 11:13) Upset Stomach DIZZINESS, DRY MOUTH, HEADACHE Medications to take at Discharge Ascorbic Acid [Vitamin C] 1,000 mg PO DAILY 11/05/19 Cholecalciferol (VIT D3) [Vitamin D3] 1,000 unit PO DAILY 11/05/19 Acetaminophen [Tylenol] 1,000 mg PO Q8 #100 tab 11/20/19 Aspirin [Aspirin, Baby] 81 mg PO BIDCM #60 tab 11/20/19 Famotidine [Pepcid] 20 mg PO DAILY #30 tab 11/20/19 Meloxicam [Mobic] 7.5 mg PO BID #60 tab 11/20/19 Ondansetron HCl [Zofran] 4 mg PO Q8H PRN PRN #20 tab 11/20/19 Oxycodone [Oxyir] 5 - 10 mg PO Q4H PRN PRN 4 Days #48 tab 11/20/19 Senna/Docusate Sodium [Senokot-S] 2 tab PO BID #10 tab 11/20/19 The following prescriptions were given: Aspirin [Aspirin, Baby] 81 mg PO BIDCM #60 tab Transmission Status: Received by [id number] Meloxicam [Mobic] 7.5 mg PO BID #60 tab Transmission Status: Received by [id number] Oxycodone [Oxyir] 5 - 10 mg PO Q4H PRN PRN 4 Days #48 tab PRN Reason: Pain Score 4-10 Transmission Status: Received by [id number] Famotidine [Pepcid] 20 mg PO DAILY #30 tab Transmission Status: Received by [id number] Senna/Docusate Sodium [Senokot-S] 2 tab PO BID #10 tab Transmission Status: Received by [id number] Acetaminophen [Tylenol] 1,000 mg PO Q8 #100 tab Transmission Status: Received by [id number] Ondansetron HCl [Zofran] 4 mg PO Q8H PRN PRN #20 tab PRN Reason: Nausea Transmission Status: Pending to [id number] Primary Care Physician: Paul Mitchell MD [Primary Care Provider] - Test Results: Test results from this visit will be discussed in further detail at your follow- up appointment, if applicable. Please Follow Up With: Physical Therapy When: 11/24/19 Please Follow Up With: Martinez House PA-C When: 12/03/19 @ 8:30 am
[2019-11-20] MEDS: Ascorbic Acid 500 MG Tablet 1000 MG PO (09:39)
[2019-11-20] MEDS: Senna/Docusate Sodium 1 Tablet 2 TABLET PO (09:39)
[2019-11-20] MEDS: Aspirin 81 MG TAB.CHEW PO (09:40)
[2019-11-20] MEDS: Ensure Surgery 237 ML LIQUID PO ×2 (09:42→13:10)
--- NOTE | 2019-11-20 09:50 | CASEMGMT ---
BA CRAVEN SPECIAL EDUCATION TUTOR CM to room to meet with patient for initial transition planning/care coordination assessment. BA CRAVEN introduced self and role at [facility]. Pt voices understanding and consents to assessment at this time. Pt sitting up in recliner chair in no distress at this time. Pt is A/O at this time and answers all questions appropriately. Care providers, pharmacy, and demographics verified/updated at this time. PCP: Dr Mitchell Specialists: Dr Weems--ortho Preferred Pharmacy: [facility] Insurance: [employer] Prescription Benefit: Yes LNOK: , Matthew Living Arrangements: Lives w/her in 2-story home. Bedroom and bath on 2nd floor. Pt states has pull-out couch on main floor, if needed. 2 or 3 steps to enter into home. Independent w/ADL's prior to surgery. able to assist w/care as needed. Transportation: DME: States has the following DME: cane, walker, rollator, [facility] hospital [facility] Pt states may be interested in getting a tub bench or raised toilet seat. Made aware these are not covered under insurance. Provided w/list of local DME companies. Pt voices appreciation. HHC/SNF: No history of either. Denies needs. Pt will be going to [facility] for OP therapy. 1st appt is 11/23 @ 0930 per pt. Pt wishes to return home and states has no concerns with going home at time of discharge. CM to follow for any discharge planning/needs. Pt voices no concerns/needs at this time. Advised pt to ask for CM if any questions/concerns/needs arise. Voices understanding. PLAN: Home w/OP therapy @ [facility] and discharge plans in place. Wesly DOWNEY RN, CM
--- NOTE | 2019-11-20 11:39 | PHA.DC.MC ---
Pharmacy Service has performed discharge medication reconciliation and counseling for this patient. The patient's discharge medication list was reviewed for discrepancies and discrepancies were resolved. The patient was counseled on the following discharge medications and changes in medications for homegoing were reviewed. 1. aspirin 2. pepcid 3. oxycodone 4. acetaminophen 5. senna-s 6. ondansetron The Reason for Use, instructions for use, and potential side effects were reviewed for all new medications. The patient's questions regarding all of their medications were answered. The patient was able to verbally demonstrate an understanding of their discharge medications. Home Medications Ascorbic Acid [Vitamin C] 1,000 mg PO DAILY 11/05/19 Cholecalciferol (VIT D3) [Vitamin D3] 1,000 unit PO DAILY 11/05/19 Acetaminophen [Tylenol] 1,000 mg PO Q8 #100 tab 11/20/19 Aspirin [Aspirin, Baby] 81 mg PO BIDCM #60 tab 11/20/19 Famotidine [Pepcid] 20 mg PO DAILY #30 tab 11/20/19 Meloxicam [Mobic] 7.5 mg PO BID #60 tab 11/20/19 Ondansetron HCl [Zofran] 4 mg PO Q8H PRN PRN #20 tab 11/20/19 Oxycodone [Oxyir] 5 - 10 mg PO Q4H PRN PRN 4 Days #48 tab 11/20/19 Senna/Docusate Sodium [Senokot-S] 2 tab PO BID #10 tab 11/20/19
[2019-11-20 15:30] VITALS: BP 100/61; PULSE 61; RESP 16; TEMP 36.4; O2SAT 98
== END 2019-11-20 15:54 | disposition home or self-care (01) ==
LOC: SDC 12:08 → MS3 12:08
PROVIDERS: Anesthesiology; Admitting Provider Specialist; PCP Family Medicine; Referring Provider Specialist; Visit Provider Specialist
PROC: 8E0Y0CZ Robotic Assisted Procedure of Lower Extremity, Open Approach (ICD-10-PCS; CPT 27130; principal; 2019-11-19 13:00)
DX: M16.11 Unilateral primary osteoarthritis, right hip (principal); Z11.59 Encounter for screening for other viral diseases; Z79.899 Other long term (current) drug therapy; E66.9 Obesity, unspecified; Z68.33 Body mass index [BMI] 33.0-33.9, adult; Z86.2 Personal history of diseases of the blood and blood-forming organs and certain disorders involving the immune mechanism; K21.9 Gastro-esophageal reflux disease without esophagitis; K58.9 Irritable bowel syndrome, unspecified
CPT/HCPCS: 01214; 27130; S2900; 36415; 73501; 73502; 76000; 80048; 82962; 85025; 85027; 87077; 87081; 87635; 93005; 96361; 96365; 96366; 96367; 96375; 96376; 97110; 97116; 97161; 97166; 97530; 99218; 99251; C1776; G2023; J7040; J7120; A4216; G0378; G0379; G0463; J2405; U0003

== ENCOUNTER 2020-07-23 12:49 | Outpatient (RCR) | payer OTHER, SELFPAY ==
[2019-11-19 17:16] VITALS: BMI 33.9
[2020-07-23] MEDS: COVID-19 VACC, MRNA(PFIZER)/PF 30 MCG/0.3 ML SYRINGE IM (17:56)
[2020-08-13] MEDS: COVID-19 VACC, MRNA(PFIZER)/PF 30 MCG/0.3 ML SYRINGE IM (17:11)
== END 2020-07-23 23:59 ==
LOC: IMMUN 12:49
PROVIDERS: PCP Family Medicine; Visit Provider Family Medicine
DX: Z23 Encounter for immunization (principal)
CPT/HCPCS: 0001A; 0002A; 91300

== ENCOUNTER → 2023-01-18 | Outpatient (CLI) | payer OTHER, SELFPAY ==
--- NOTE | 2023-01-18 16:37 | BI_ITS ---
MAMMOGRAPHY - BILATERAL SCREENING REASON FOR EXAM: Female, 62 years old. Routine annual screening examination. PERTINENT HISTORY: Aunt with breast cancer. TECHNIQUE: Digital bilateral breast shea (3D mammographic acquisition) in the CC and MLO projections. 2-D mediolateral oblique (MLO) and craniocaudad (CC) views of both breasts were obtained. CAD: Full Field Digital Mammography with Computer Added Detection was performed. COMPARISON: Comparison is made with prior study dated October 13, 2016 and December 27, 2012. FINDINGS: Breast Composition: The breasts are heterogeneously dense, which may obscure small masses. There are no dominant masses or suspicious calcifications. Stable small benign-appearing bilateral axillary lymph nodes. No other significant abnormalities are identified. There has been no significant change since the prior study. BI/SCRN MAMM (CAD)W/SHEA BILAT IMPRESSION: Stable bilateral screening mammogram. Yearly follow-up mammogram recommended. (A) ASSESSMENT CATEGORY: BIRADS Category 2: Benign. A letter regarding these results will be sent to the patient by the facility within 30 days. Approximately 10% of breast cancers are not detected by mammography. A normal mammogram should not delay biopsy of a clinically suspicious abnormality. [id number] Electronically Signed: Hira Hoyt MD at 9:02 EDT ,
== END | disposition home or self-care (01) ==
LOC: OPBI 01-19 07:26
PROVIDERS: PCP Family Medicine; Referring Provider Family Medicine; Visit Provider Family Medicine
DX: Z00.00 Encounter for general adult medical examination without abnormal findings (principal); Z12.31 Encounter for screening mammogram for malignant neoplasm of breast; Z80.3 Family history of malignant neoplasm of breast
CPT/HCPCS: 77063; 77067